=== PATIENT | female | born 1970 | race African-American/Black ===

== ENCOUNTER 2022-11-24 18:12 | Emergency (ER) | payer OTHER ==
[~2022-11-24] VITALS: Ht 165.1 cm; Wt 64.0 kg
[2022-11-24 18:18] VITALS: BP 149/63
[2022-11-24] MEDS ORDERED: KETOROLAC 60MG/2ML VIAL IM ONE (22:00)
[2022-11-24] MEDS ORDERED: LORAZEPAM 1MG TABLET PO ONE (22:00)
[2022-11-24 23:33] LABS: CHLORIDE 108 mEq/L (98-107)
[2022-11-24 23:35] LABS: BASOPHILS % 0.5 % (0.0-2.0); EOSINOPHILS % 0.1 % (0.0-5.0); HEMATOCRIT. 40.9 % (36.0-48.0); HEMOGLOBIN. 13.8 g/dL (12.0-16.0); LYMPHOCYTES % 19.5 % (20.0-50.0); MEAN CORPUSCULAR HEMOGLOBIN 31.7 pg (28.0-32.0); MEAN PLATELET VOLUME 8.8 fl (7.4-10.4); MONOCYTES % 6.1 % (2.0-8.0); NEUTROPHILS % 73.8 % (40.0-76.0); PLATELET 195 x1000/uL (130-400); RED BLOOD CELL COUNT 4.35 mill/uL (4.2-5.4); RED CELL DISTRIBUTION WIDTH 14.3 % (11.6-14.6)
[2022-11-24 23:39] LABS: PROTHROMBIN TIME 10.9 sec (9.6-11.0)
[2022-11-25] MEDS ORDERED: CYCL10TA21 MT (00:41)
[2022-11-25] MEDS ORDERED: IBUP-2028 MT (00:41)
[2022-11-25] MEDS ORDERED: IOHEXOL-300 100 ML BOTTLE ONE (00:42)
== END 2022-11-25 00:59 | disposition home or self-care (01) ==
LOC: ER 18:12
DX: R10.9 Unspecified abdominal pain (principal); M54.9 Dorsalgia, unspecified; V43.52XA Car driver injured in collision with other type car in traffic accident, initial encounter; Y93.89 Activity, other specified; Y92.410 Unspecified street and highway as the place of occurrence of the external cause
CPT/HCPCS: 36415; 72100; 74177; 80053; 81025; 85025; 85610; 96372; 99285; J1885; Q9967